=== PATIENT | female | born 1955 | race African-American/Black ===

== ENCOUNTER 2016-06-03 17:41 | Inpatient (IN) | payer BC, OTHER ==
[~2016-06-03] VITALS: Ht 166.4 cm; Wt 66.0 kg
[~2016-06-03 17:41] MED LIST: AMLO-218; ASPI-535; BENA20TA48; GLIM2TAB; HUMULIN SC; HYDR12.58 PO; METF500T4 PO; NITR0.4T6; OMEP20TA42; [UNRECOGNIZED DRUG - REMARK]
[2016-06-03] MEDS ORDERED: SOD CHLORIDE 0.9% 1,000 ML IV STA ×2 (18:00→19:12)
[2016-06-03] MEDS ORDERED: FAMOTIDINE 20 MG INJ IV STA (18:00)
[2016-06-03] MEDS ORDERED: ONDANSETRON 4 MG INJ IV STA (18:00)
[2016-06-03] MEDS ORDERED: ASPIRIN 325 MG TAB PO STA (18:12)
[2016-06-03 18:14] LABS: BASOPHILS % 0.4 % (0.0-2.0); EOSINOPHILS # 0.1 10^3/ul (0.0-0.5); EOSINOPHILS % 0.9 % (0.0-7.0); HEMATOCRIT 42.2 % (37.0-47.0); HEMOGLOBIN 13.9 g/dl (12.0-16.0); LYMPHOCYTES # 1.6 10^3/ul (0.8-2.9); LYMPHOCYTES % 25.6 % (15.0-51.0); MEAN CORPUSCULAR HEMOGLOBIN 27.1 pg (29.0-33.0); MEAN CORPUSCULAR VOLUME 82.1 fl (82.0-101.0); MEAN PLATELET VOLUME 7.5 fl (7.4-10.4); MONOCYTE # 0.3 10^3/ul (0.3-0.9); MONOCYTES % 4.5 % (0.0-11.0); NEUTROPHIL # 4.4 10^3/ul (1.6-7.5); NEUTROPHILS % 68.6 % (39.0-77.0); PLATELET COUNT 268 10^3/UL (140-440); RED BLOOD COUNT 5.14 10^6/ul (4.20-5.40); RED CELL DISTRIBUTION WIDTH 12.2 % (11.5-14.5); UNCORRECTED WBC 6.4 10^3/ul (4.8-10.8); WHITE BLOOD COUNT 6.4 10^3/ul (4.8-10.8)
[2016-06-03 18:15] LABS: CONDITION 1
--- NOTE | 2016-06-03 18:22 | RADRPT ---
PROCEDURE: XR Chest. CLINICAL INDICATION: Abdomen pain. TECHNIQUE: Single frontal view. COMPARISON: 04/15/2012. FINDINGS: The lungs are clear. The heart size is normal. There is no pleural effusion. There is no pneumothorax. IMPRESSION: 1. Normal chest radiograph. 2. No change from 04/15/2012. RPTAT: QQ .Sebastien Valle MD, MD Date Time Electronically viewed and signed by .Sebastien Valel MD, MD on 06/03/2016 18:22 .R/
[2016-06-03 18:23] LABS: ALBUMIN 4.5 g/dl (3.3-4.9); CHLORIDE 98 mmol/L (97-110); SODIUM 139 mmol/L (135-144)
[2016-06-03 18:24] LABS: INR 0.96; POTASSIUM 4.1 mmol/L (3.5-5.1); PROTIME 12.8 Sec (12.2-14.2)
[2016-06-03 18:25] LABS: PARTIAL THROMBOPLASTIN TIME 27.5 Sec (25.0-35.0)
[2016-06-03 18:26] LABS: ALBUMIN/GLOBULIN RATIO 1.32; ALKALINE PHOSPHATASE 119 IU/L (42-121); AMYLASE 75 U/L (11-123); ANION GAP 21 (8-16); ASPARTATE AMINO TRANSFERASE 17 IU/L (15-46); BILIRUBIN,INDIRECT 0.2 mg/dl (0-1.1); BILIRUBIN,TOTAL 0.2 mg/dl (0.2-1.3); BLOOD UREA NITROGEN 14 mg/dl (7-20); CARBON DIOXIDE 24 mmol/L (21-31); CREATININE 0.66 mg/dl (0.44-1.00); TOTAL PROTEIN 7.9 g/dl (6.1-8.1)
[2016-06-03 18:27] LABS: ALANINE AMINOTRANSFERASE 24 IU/L (13-69); CALCIUM 10.3 mg/dl (8.4-10.2); GLUCOSE 133 mg/dl (70-220)
--- NOTE | 2016-06-03 18:42 | RADRPT ---
PROCEDURE: CT Brain without contrast. CLINICAL INDICATION: Headache. TECHNIQUE: A CT of the brain was performed utilizing axial sections from the skull base through th e vertex without contrast. Multiplanar re-formations were generated. Images were reviewed on a high- resolution PACS workstation. CTDIvol: 45.01 mGy. DLP: 720.23 mGy-cm. COMPARISON: 04/15/2012 FINDINGS: There is mild generalized volume loss. No hydrocephalus is seen. A 1.5 x 1.6 x 2.2 cm partially ca lcified pleural-based lesion is seen in the superolateral right posterior fossa, extending across fausto th sides of the tentorium cerebelli. This is consistent with a meningioma. Mild mass effect is seen in the adjacent right cerebellar hemisphere. There is minimal mass effect on the adjacent right occ ipital lobe. No midline shift is seen in the basal cisterns are patent. No acute intracranial hemor rhage is identified. There is no extra-axial collection. No CT evidence of acute infarction is iden tified. There is a chronic lacunar infarction in the left basal ganglia region. There are mild ather osclerotic arterial calcifications. There is no significant mucosal disease in the paranasal sinuses. The visualized mastoid air cells a re clear. The ossesous structures are unremarkable. The extracranial soft tissues are unremarkable. IMPRESSION: 1. No acute intracranial pathology. 2. Mild generalized volume loss. 3. Chronic lacunar infarction in the left basal ganglia region. 4. 2.2 cm partially calcified meningioma in the superolateral right posterior fossa, extending acro ss both sides of the tentorium cerebelli. This causes mild mass effect on the adjacent right cerebel lar hemisphere. 5. Atherosclerotic arterial calcifications. RPTAT: HTAR .Jeremy Morris MD, Date Time Electronically viewed and signed by .Jeremy Morris MD, on 06/03/2016 18:42 .R/
[2016-06-03 18:44] LABS: TROPONIN-I < 0.012 ng/ml (0.00-0.12)
[2016-06-03] MEDS ORDERED: METF1000 PO (18:52)
[2016-06-03] MEDS ORDERED: CANA300T PO (18:52)
[2016-06-03] MEDS ORDERED: PRAV10TA43 PO (18:52)
[2016-06-03] MEDS ORDERED: AMLO-147 PO (18:53)
[2016-06-03] MEDS ORDERED: BENA10TA48 PO (18:53)
[2016-06-03] MEDS ORDERED: METOCLOPRAMIDE 10 MG INJ IV STA (19:12)
[2016-06-03 19:17] LABS: D-DIMER 370.93 ng/ml (<460)
--- NOTE | 2016-06-03 19:42 | ERA ---
ER Documentation Chief Complaint Date/Time DATE: 06/03/16 TIME: 19:24 Chief Complaint 2 DAYS OF VOMITING AND DIARRHEA. HEADACHE NO NEURO. GEN WEAKNESS RECENT URI HPI This is a 60-year-old -[place] female with a known history of non- insulin-dependent diabetes mellitus, hypertension and a meningioma. The patient presents to the emergency department indicating that 2 weeks prior to arrival she had a nonproductive cough generalized myalgias, sneezing and flulike symptoms. The patient went to [facility] to the ER this past Monday, 4 days prior to arrival and was given a Z-Troy. She stated no radiographic imaging or ancillary laboratory work was obtained. The patient indicates that over the past week she has been having intermittent loose watery stools. She denies any recent hospitalizations. She has had no recent travel. She denies any blood present within the stool. She denies any abdominal pain. 12 hours prior to arrival the patient awoke at 5 AM, and stated she had multiple episodes of nonbloody nonbilious emesis which have continued throughout the day. She indicates that she has been vomiting roughly every 2 hours. She also indicates that when the vomiting started she developed a mild chest discomfort with no chest pressure. She indicated that the chest discomfort was a dull achy sensation that would last for roughly 30 minutes and then would spontaneously resolved. She had no associated symptoms of nausea diaphoresis but did state she had mild shortness of breath at the onset of the chest pain at rest. She stated the chest pain did not radiate to the neck arm back or jaw. She takes 325 mg of aspirin on a daily basis. The patient also indicates she has a known history of a meningioma which was diagnosed in 2008. She has seen the neurosurgeon Dr. Montenegro in March 2016 she was instructed to go to [facility] to see another neurosurgeon to discuss possible surgical intervention. She indicated she however was unable to see this neurosurgeon as he had retired. She does indicate that she has been having intermittent headaches over the past several months but denies any changes in vision. She denies that this is the worst headache of her life and she also has no neck pain. She has had no fevers shaking or chills. She also indicates that she has frequent urinary tract infections and is complaining of mild frequency urgency and dysuria over the past 48 hours. She has had generalized weakness which prompted her to come to the emergency department to be further evaluated as she has been unable to tolerate oral intake over the past 12 hours due to the emesis. ROS All systems reviewed and are negative except as per history of present illness. Medications Home Meds Reported Medications Amlodipine Besylate* (Amlodipine Besylate*) 10 Mg Tablet, 10 MG PO DAILY, #30 TAB 06/03/16 Benazepril Hcl* (Benazepril Hcl*) 10 Mg Tablet, 10 MG PO DAILY, #30 TAB 06/03/16 Pravastatin Sodium* (Pravastatin Sodium*) 10 Mg Tablet, 10 MG PO HS, TAB 06/03/16 Canagliflozin (Invokana) 300 Mg Tablet, 300 MG PO DAILY, TAB 06/03/16 Metformin Hcl* (Metformin Hcl*) 1,000 Mg Tablet, 1000 MG PO BID, #30 TAB 06/03/16 Discontinued Reported Medications [? New B/P Med] No Conflict Check 04/15/12 Hydrochlorothiazide* (Hydrochlorothiazide*) 12.5 Mg Tablet, 1 TAB PO DAILY 04/15/12 Metformin* (Glucophage*) 500 Mg Tab, 1 TAB PO BID 04/15/12 [Humulin] No Conflict Check, 16 U SC DAILY 04/15/12 Nitroglycerin* (Nitroglycerin* SL) 0.4 Mg Tab.subl 04/12/09 Aspirin Ec (Aspir 81) 81 Mg Tablet. 04/12/09 Glimepiride* (Glimepiride*) 2 Mg Tablet 04/12/09 Benazepril Hcl* (Benazepril Hcl*) 20 Mg Tablet 04/12/09 Amlodipine Besylate* (Norvasc*) 10 Mg Tablet 04/12/09 Omeprazole (Omeprazole) 20 Mg Tablet. 04/12/09 Allergies Allergies: Coded Allergies: hydrocodone (Verified Allergy, Mild, 04/15/12) PMhx/Soc History of Surgery: Yes (HYST) Anesthesia Reaction: No Hx Neurological Disorder: No Hx Respiratory Disorders: No Hx Cardiac Disorders: Yes (HTN) Hx Psychiatric Problems: No Hx Miscellaneous Medical Probl: Yes (DM II, HIGH CHOL, BRAIN TUMOR) Hx Alcohol Use: Yes (SOCIALLY) Hx Substance Use: No Hx Tobacco Use: Yes (SOCIALLY) Smoking Status: Light tobacco smoker Physical Exam Vitals Vital Signs Date Time Temp Pulse Resp B/P Pulse Ox O2 Delivery O2 Flow Rate FiO2 06/03/16 17:51 97.9 71 22 173/97 100 Room Air 06/03/16 17:42 97.9 82 22 140/84 98 Physical Exam Constitutional:Well-developed. Well-nourished. HEENT:Normocephalic. Atraumatic.Pupils were equal round reactive to light. Dry mucous membranes.No tonsillar exudates. Funduscopy exam showed sharp optic disc bilaterally venous pulsations are present Neck: No nuchal rigidity. No lymphadenopathy. No posterior cervical spine tenderness or step-offs. Respiratory: Not using accessory muscles of respiration.Lungs were clear to auscultation bilaterally. No rhonchi. No rales. No wheezing. Cardiovascular: Regular rate regular rhythm.No murmurs. No rubs were appreciated.S1, S2 normal. Distal pulses are palpable 2+ bilaterally. GI: Abdomen was soft. Nontender. Non Distended. No pulsatile abdominal masses or bruits. No rebound. No guarding. Bowel sounds were present and normal. Muscle skeletal: Full range of motion of both the upper and lower extremities bilaterally.Normal muscle tone.No assymetrical calf tenderness or swelling. Skin: No petechia, no purpura. No lesions on the palms or the soles of the feet. No maculopapular rash. NEURO: Patient was alert, awake, orientated x3.No facial droop. Gait observed and normal with no ataxia.Speech had regular rate and rhythm. No focal neurological deficits. Result Diagram: 06/03/16180206/03/161802 Results 24 hrs Laboratory Tests Test 06/03/16 18:03 Activated Partial Thromboplast Time 27.5Sec Alanine Aminotransferase (ALT/SGPT) 24IU/L Albumin 4.5g/dl Albumin/Globulin Ratio 1.32 Alkaline Phosphatase 119IU/L Amylase Level 75U/L Anion Gap 21 Aspartate Amino Transf (AST/SGOT) 17IU/L B-Type Natriuretic Peptide 98PG/ML Basophils # 0.010^3/ul Basophils % 0.4% Blood Morphology Comment Blood Urea Nitrogen 14mg/dl Calcium Level 10.3mg/dl Carbon Dioxide Level 24mmol/L Chloride Level 98mmol/L Creatinine 0.66mg/dl D-Dimer 370.93ng/ml D-Dimer Comment Direct Bilirubin 0.00mg/dl Eosinophils # 0.110^3/ul Eosinophils % 0.9% Globulin 3.40g/dl Glucose Level 133mg/dl Hematocrit 42.2% Hemoglobin 13.9g/dl INR International Normalized Ratio 0.96 Indirect Bilirubin 0.2mg/dl Lipase 34U/L Lymphocytes # 1.610^3/ul Lymphocytes % 25.6% Mean Corpuscular Hemoglobin 27.1pg Mean Corpuscular Hemoglobin Concent 33.0g/dl Mean Corpuscular Volume 82.1fl Mean Platelet Volume 7.5fl Monocytes # 0.310^3/ul Monocytes % 4.5% Neutrophils # 4.410^3/ul Neutrophils % 68.6% Nucleated Red Blood Cells # 0.010^3/ul Nucleated Red Blood Cells % 0.0/100WBC Platelet Count 18810^3/UL Potassium Level 4.1mmol/L Prothrombin Time 12.8Sec Prothrombin Time Ratio 1.0 Red Blood Count 5.1410^6/ul Red Cell Distribution Width 12.2% Sodium Level 139mmol/L Total Bilirubin 0.2mg/dl Total Protein 7.9g/dl Troponin I < 0.012ng/ml White Blood Count 6.410^3/ul Current Medications Medications (Trade) Dose Ordered Sig/Sarah Route PRN Reason Start Time Stop Time Status Last Admin Dose Admin Sodium Chloride (NS) 1,000 ml @ 1,000 mls/hr Q1H STAT IV 06/03/16 18:00 06/03/16 18:59 DC 06/03/16 18:05 Ondansetron HCl (Zofran Inj) 4 mg ONCE STAT IV 06/03/16 18:00 06/03/16 18:02 DC 06/03/16 18:07 Famotidine (Pepcid Iv) 20 mg ONCE STAT IV 06/03/16 18:00 06/03/16 18:02 DC 06/03/16 18:07 Aspirin 325 mg 325 mg ONCE STAT PO 06/03/16 18:12 06/03/16 18:14 DC 06/03/16 18:25 Sodium Chloride (NS) 1,000 ml @ 1,000 mls/hr Q1H STAT IV 06/03/16 19:12 06/03/16 20:11 2/17/17 19:39 Metoclopramide HCl (Reglan) 10 mg ONCE STAT IV 06/03/16 19:12 06/03/16 19:21 DC 06/03/16 19:39 Ondansetron HCl (Zofran Inj) 4 mg ER BRIDGE PRN IV NAUSEA AND/OR VOMITING 06/03/16 20:00 06/04/16 19:59 Acetaminophen (Tylenol Tab) 650 mg ER BRIDGE PRN PO MILD PAIN/FEVER 06/03/16 20:00 06/04/16 19:59 Procedures/MDM The patient presented to the emergency department with chest pain. My clinical evaluation and workup was to distinguish minor causes of chest pain from acute life threatening conditions such as myocardial infarction, pulmonary embolism, aortic dissection, esophageal rupture, cardiac tamponade. The patient was placed on a secured entrance monitor and continuous pulse oximetry. IV access established by nursing staff. The patient was given 325 mg of aspirin p.o. per 12 Lead EKG tracing ordered and reviewed by myself showed: Normal sinus rhythm at 72 bpm and no arrhythmia. [place] interval widened at 210 ms with a first-degree AV QRS duration widened at 134 ms. Patient had a left bundle branch block pattern and utilizing a Scarbossa criteria there is no underlying ST segment elevation or depression No changes consistent with acute ischemia. The EKG was obtained at 1811. I was able to speak with Dr. lastat 1815 and given that the patient was not expressing active chest pain, appeared comfortable there is no indication to take the patient to the [facility] for PCI due to the fact that she had a new left bundle branch block is a reviewed previous records and it was not present on a previous EKG. However the patient will be admitted for serial 12-lead EKG tracings and cardiac set of enzymes. Her first cardiac enzyme was negative The patient did receive IV fluids and multiple doses of antiemetics which included Zofran and Pepcid Reglan but the patient stated she still was unable to tolerate oral intake. Therefore she will be admitted for IV fluid hydration. She had no abdominal tenderness and therefore did not feel is necessary to obtain any radiographic imaging of the abdomen. The patient did indicate that she had been having intermittent headaches with a known history of a meningioma that is 2.[address] scan of the head in 2011. Therefore I repeated the patient's CT scan of her head and indicated that meningioma was still the same size and there was mild mass-effect adjacent to the right cerebellar hemisphere. I spoke with the neurosurgeon Dr. Pedersen who was in agreement with the medical management that this can be followed up on an outpatient basis as the patient has seen previous neurosurgeons in the past and had no focal neurological deficits at this time. The patient was a low pretest probability according to the well's criteria for pulmonary embolism. She did state she had a sudden onset of shortness of breath at the onset of chest discomfort therefore obtained a d-dimer, given that this was within normal limits and not elevated I did not feel is necessary to obtain a CT scan of the chest is my clinical suspicion was low for pulmonary embolism The patient will be admitted in serious condition the hospitalist Dr. Rene to the telemetry service. Departure Diagnosis: Primary Impression: Chest pain Qualified Code: R07.9 - Chest pain, unspecified type Additional Impressions: Left bundle branch block (LBBB) on electrocardiogram Intractable vomiting with nausea Qualified Code: R11.2 - Intractable vomiting with nausea, unspecified vomiting type Acute diarrhea Condition: Serious TJ DELCID Jun 03, 2016 19:40
[2016-06-03] MEDS ORDERED: ONDANSETRON 4 MG INJ IV PRN (20:00)
[2016-06-03] MEDS ORDERED: ACETAMINOPHEN 325 MG TAB PO PRN (20:00)
[2016-06-03 20:13] LABS: ADD UMIC YES; URINE BILIRUBIN (Dip) NEGATIVE (NEGATIVE); URINE BLOOD (Dip) TRACE (NEGATIVE); URINE KETONES (Dip) 3+ (NEGATIVE); URINE LEUKOCYTE ESTERASE (Dip) 1+ (NEGATIVE); URINE NITRITE (Dip) NEGATIVE (NEGATIVE); URINE TOTAL PROTEIN (Dip) NEGATIVE (NEGATIVE); URINE UROBILINOGEN (Dip) 0.2 E.U./dL (0.1-1.0)
[2016-06-03 20:36] LABS: URINE COLOR YELLOW (YELLOW)
[2016-06-03 20:38] LABS: BACTERIA,URINE FEW; SQUAMOUS EPITHELIAL CELL,UR MODERATE; URINE RBCS 0-2 /HPF (0)
[2016-06-04] MEDS ORDERED: DEXTROSE 5%-0.45% NACL 1,000 ML IV SCH (07:06)
[2016-06-04] MEDS ORDERED: morphine 2 MG INJ IV PRN (07:30)
[2016-06-04] MEDS ORDERED: ACETAMINOPHEN 325 MG TAB PO PRN (07:30)
[2016-06-04] MEDS ORDERED: ONDANSETRON 4 MG INJ IV PRN (07:30)
[2016-06-04] MEDS ORDERED: ALBUTEROL/IPRATROPIUM (NEB) 3 ML AMP HHN PRN (07:30)
[2016-06-04] MEDS ORDERED: NACL 0.9% 3 ML SYG IV SCH (07:30)
[2016-06-04] MEDS ORDERED: LORAZEPAM 2 MG INJ IV PRN (07:30)
[2016-06-04] MEDS ORDERED: METOCLOPRAMIDE 10 MG INJ IV PRN (07:30)
[2016-06-04] MEDS ORDERED: NITROGLYCERIN (SL) 0.4 MG TAB SL PRN (07:30)
[2016-06-04] MEDS ORDERED: SOD CHLORIDE 0.9% 100 ML ONE (07:39)
[2016-06-04] MEDS ORDERED: IOHEXOL 300MG/ML 150 ML BTL ONE (07:39)
[2016-06-04] MEDS: metroNIDAZOLE 500 MG/NS (PMX) 100 ML IVPB SCH ×3 (08:24→18:31)
--- NOTE | 2016-06-04 08:34 | RADRPT ---
AMENDMENT: 06/04/2016 3:03:00 PM Kojo Ragsdale M.D. Reproductive: A postmenopausal uterus is noted in the lower pelvis. No abnormal adnexal mass is id entified. This represents a correction to the earlier report. PROCEDURE: CT scan of the abdomen and pelvis with and without IV contrast. CLINICAL INDICATION: Abdominal pain with vomiting and diarrhea. TECHNIQUE: Thin section axial, coronal and sagittal images were performed through the abdomen and pelvis without contrast and then following the injection of 80 cc of Isovue 300. Low-dose protocol i maging was utilized. One or more of the following dose reduction techniques were used: - Automated exposure control. - Adjustment of the mA and/or kV according to patient size. Use of iterative reconstruction technique. Radiation Dose: CTDI: 45.01 and DLP: 720.23 COMPARISON: No. FINDINGS: Lungs and pleural space: Lungs are mildly hyperinflated. There is peripheral atelectasis in the rig ht lower lobe. No acute infiltrate or pulmonary nodule is identified. There is a small right pleur al effusion. There is peripheral atelectasis in the left lower lobe. Heart: Normal. No pericardial effusion is present. The liver, common bile duct and gallbladder: Liver is normal in size. There is a 1.5 cm benign hepa tic cyst in the right lobe of the liver. The hepatic portal veins are patent. There is a 7 mm mervin gn cyst in the inferior dorsal medial right lobe of the liver. The gallbladder and gallbladder wall are normal. Pancreas: Normal. The extrahepatic common bile duct measures 6.6 mm and is normal. Gastrointestinal: There is a small hiatal hernia. Stomach is incompletely distended. The small bow el loops have a normal caliber. There is scattered fecal material and air in the colon. There is a radiopaque particulate density in the distal sigmoid colon. A diverticulum is present on the cecum . The vermiform appendix was not identified. Kidneys and bladder : The kidneys and urinary bladder are normal. There is a benign 1.1 cm cyst vickie sing from the superior pole of the left kidney. Adrenal glands: Normal. Spleen: Normal. Lymph nodes: There is a 2 mm calcified lymph node at the aorta and superior mesenteric artery. No a bnormally enlarged lymph nodes are identified. Reproductive system: The prostate gland is enlarged. The seminal vesicles are normal. Bony elements: There are degenerative changes in the articular facets at L3-4, L4-5 and L5-S1. Ther e is mild grade 1 anterolisthesis of L4 and L5 with a 0 point 5 cm broad pseudo disk bulge. There i s disk space narrowing with ventral and dorsal spondylosis at L5-S1. There is moderate bony narrowi ng of the a L5-S1 nerve root foramina. No acute bony fracture or bone metastasis is identified. Vasculature: There are vascular calcifications in the abdominal aorta, common iliac arteries and int ernal iliac arteries. IMPRESSION: 1. There is a small hiatal hernia. 2. No signs of appendicitis or diverticulitis. There is a diverticulum arising from the cecum. 3. Small right pleural effusion with peripheral atelectasis in the right and left lower lobes. 4. 1.1 cm benign cyst superior pole left kidney. 5. Enlarged prostate. 6. Atherosclerotic vascular disease. 7. 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 9. Benign hepatic cysts. RPTAT:AAJJ Physician Abigail Date Time Electronically viewed and signed by Alessio Ragsdale Physician on 06/04/2016 15:02 ZAIDA/
[2016-06-04] MEDS ORDERED: GLUCOSE GEL 15 GRAM TUBE BUCCAL PRN (09:00)
[2016-06-04] MEDS ORDERED: DEXTROSE 50% 50 ML SYRINGE IV PRN ×2 (09:00)
[2016-06-04] MEDS ORDERED: GLUCOSE GEL 15 GRAM TUBE PO PRN ×2 (09:00)
[2016-06-04] MEDS ORDERED: GLUCAGON 1 MG INJ IM PRN (09:00)
[2016-06-04] MEDS ORDERED: IBUPROFEN 600 MG TAB PO PRN (10:00)
[2016-06-04] MEDS ORDERED: hydrALAzine 20 MG INJ IV PRN (10:00)
[2016-06-04] MEDS: FAMOTIDINE 20 MG INJ IV SCH ×2 (10:16→20:20)
[2016-06-04] MEDS: CIPROFLOXACIN 400MG/D5W 200 ML IVPB SCH ×2 (10:16→20:20)
[2016-06-04] MEDS: AMLODIPINE 10 MG TAB PO SCH (10:17)
[2016-06-04] MEDS: ASPIRIN 81 MG TAB PO SCH (10:17)
[2016-06-04 10:44] LABS: BASOPHIL # 0.1 10^3/ul (0.0-0.1); BASOPHILS % 1.2 % (0.0-2.0); EOSINOPHILS % 0.9 % (0.0-7.0); HEMATOCRIT 37.9 % (37.0-47.0); HEMOGLOBIN 12.7 g/dl (12.0-16.0); LYMPHOCYTES # 1.8 10^3/ul (0.8-2.9); LYMPHOCYTES % 34.8 % (15.0-51.0); MEAN CORPUSCULAR HEMOGLOBIN 27.3 pg (29.0-33.0); MEAN CORPUSCULAR HGB CONC 33.5 g/dl (32.0-37.0); MEAN CORPUSCULAR VOLUME 81.5 fl (82.0-101.0); MEAN PLATELET VOLUME 7.8 fl (7.4-10.4); MONOCYTE # 0.3 10^3/ul (0.3-0.9); MONOCYTES % 4.9 % (0.0-11.0); NEUTROPHILS % 58.2 % (39.0-77.0); PLATELET COUNT 259 10^3/UL (140-440); RED BLOOD COUNT 4.65 10^6/ul (4.20-5.40); RED CELL DISTRIBUTION WIDTH 12.4 % (11.5-14.5); UNCORRECTED WBC 5.2 10^3/ul (4.8-10.8); WHITE BLOOD COUNT 5.2 10^3/ul (4.8-10.8)
[2016-06-04 10:45] LABS: CONDITION 1; LH ANALYZER COMMENTS 1
[2016-06-04 10:46] LABS: ALBUMIN 3.9 g/dl (3.3-4.9)
[2016-06-04 10:47] LABS: POTASSIUM 4.3 mmol/L (3.5-5.1)
--- NOTE | 2016-06-04 10:48 | HP ---
DATE OF ADMISSION: 06/03/2016 CHIEF COMPLAINT: Vomiting, diarrhea, headache and chest pain. HISTORY OF PRESENT ILLNESS: The patient is a 60-year-old female with history of hypertension, diabe zain, dyslipidemia and meningioma, who presents to the emergency department with the above stated chi ef complaint. She stated that about 2 weeks ago she started having "flu." She said she was having fever/chills, headache, dry cough, muscle and joint pain, ____ bilious vomiting and nonbloody, nonbi lious diarrhea. She states she went to [facility] and was given a Z-Troy, and after that she stated her diarrhea worsened. No imaging or blood work was done over at [facility]. The patient actually denied abdominal pain. She also stated that for a long time, like off and on, she had to deal with diarrhea, but not this severe of for a long duration. As far as her chest pain is concerned, it started yesterday morning and located in the mid chest and is described as sharp/s queezing. No diaphoresis. No shortness of breath. No radiation to her arm, even though she states unrelated to her chest pain, she feels like sometimes her right hand has tingling sensation and some weakness. When she presented to the ER, a chest x-ray was done which showed no active disease. CT of the bev n shows a chronic lacunar infarct and a 2.2 cm partially calcified meningioma with mild ____. The p mehnaz does follow up regularly with a neurologist or neurosurgeon and the last time she was evaluat ed was 2 months ago. She stated she had an MRI of the brain in October of last year and at that time s he was told that the meningioma was growing there was a discussion about surgery. The ER physician, Dr. Rios, discussed the findings of the head CT with the on-call neurosurgeon, Dr. Pedersen, who s tated this can be followed up as an outpatient with her own doctors. Of note on further questioning, the patient stated that while she was doing laundry yesterday she fe lt lightheaded and fell to the ground, losing consciousness for less than a minute. She did not thi nk she hit her head, but she did land on her left knee and ____. REVIEW OF SYSTEMS: A 12-point review is performed, negative except as mentioned in the HPI. PAST MEDICAL HISTORY: As per HPI. SOCIAL HISTORY: She smokes 1 pack per week for about 35 years. She used to drink on a weekly basis . She also has a history of marijuana and cocaine for over 20 years, but last use was 10 years ago. PHYSICAL EXAMINATION: GENERAL: The patient is lying in the gurney, in no acute distress. She is answering questions appr opriately. Alert and oriented x4. HEENT: No obvious head deformity. Pupils are reactive to light. Extraocular muscles intact. CARDIOVASCULAR: Regular rate and rhythm. No extra sounds. LUNGS: Clear. ABDOMEN: Soft, nontender, nondistended. Positive bowel sounds. EXTREMITIES: No edema. There is tenderness in the left knee with no obvious deformity, swelling, e rythema or warmth. LABORATORY DATA: Basic labs within acceptable range. IMAGING: Chest x-ray shows no active disease. Brain CT shows acute a 2.2 cm partially calcified meningioma with mild ____. Also, chronic lacunar infarct. IMPRESSION: 1. Vomiting and diarrhea, possible enteritis versus colitis. 2. Chest pain, need to rule acute coronary syndrome. 3. Meningioma with mild ____. 4. Headache, ____. 5. History of hypertension. 6. History of diabetes. 7. History of dyslipidemia. 8. Urinary tract infection. PLAN: She will be placed on an antibiotic, which will address both the UTI and possible colitis/ent eritis. We will provide pain medication as needed. She will be ruled out for ACS, but I have low s uspicion for that. She will be continued with her home medications and will adjust them as needed, but for diabetes she will be placed on insulin. We will check an A1c, fasting lipids and TSH in the morning. As far as her meningioma is concerned, she will be followed up with her neurologist/neuro surgeon as an outpatient and as mentioned in the HPI, the on-call neurosurgeon, Dr. Pedersen, does not think this requires a consult during this hospitalization. Further workup and management will be per clinical course. Dictated By: SNEHA BEAR/MARTY Conf#: [id number] DID#: [id number]
[2016-06-04 10:49] LABS: CREATININE 0.69 mg/dl (0.44-1.00)
[2016-06-04 10:50] LABS: ALBUMIN/GLOBULIN RATIO 1.3; BILIRUBIN,INDIRECT 0.1 mg/dl (0-1.1); BILIRUBIN,TOTAL 0.1 mg/dl (0.2-1.3); TOTAL PROTEIN 6.9 g/dl (6.1-8.1)
[2016-06-04 10:51] LABS: CALCIUM 9.5 mg/dl (8.4-10.2); CHOL/HDL RATIO 4.4 RATIO
[2016-06-04] MEDS: INSULIN ASPART [NOVOLOG] 3 ML PEN SC SCH ×3 (12:01→21:00)
[2016-06-04 12:10] LABS: THYROID STIMULATING HORMONE 0.467 MIU/L (0.465-4.680)
[2016-06-04 14:07] VITALS: TEMP 98.9
[2016-06-04 15:00] VITALS: BP 163/80; PULSE 65; RESP 20; Ht 166.4 cm; Wt 66.0 kg
[2016-06-04 16:52] VITALS: PULSE 67
--- NOTE | 2016-06-04 17:04 | PN ---
Date/Time of Note Date/Time of Note DATE: 06/04/16 TIME: 16:59 Assessment/Plan VTE Prophylaxis VTE Prophylaxis Intervention: SCD's Lines/Catheters Urinary Cath still in place: No Assessment/Plan Chief Complaint/Hosp Course 1. Intractable N/V 2/2 Azithro vs UTI vs Chronic Meningioma -cont Cipro and IVF -pt to F/U with her [facility] as an out-pt 2. Chest pain R/O ACS 3. Meningioma with FERNÁNDEZ -out-pt F/U 4. History of hypertension-stable 5. DM -A1C at 9.4 6. UTI -cont Cipro PPx- SCD's Problems: Subjective 24 Hr Interval Summary Gastrointestinal: nausea Exam/Review of Systems Vital Signs Vitals Vital Signs Date Time Temp Pulse Resp B/P Pulse Ox O2 Delivery O2 Flow Rate FiO2 06/04/16 16:52 67 06/04/16 15:00 98.0 20 163/80 98 Room Air Exam Constitutional: alert, oriented Respiratory: clear to auscultation Cardiovascular: regular rate and rhythm Gastrointestinal: soft, No distended Musculoskeletal: nl extremities to inspection Results Result Diagram: 06/04/16 1000 06/04/16 1020 Results 24 hrs Laboratory Tests Test 06/03/16 18:03 06/03/16 19:20 06/04/16 10:00 06/04/16 10:20 Activated Partial Thromboplast Time 27.5 Alanine Aminotransferase (ALT/SGPT) 24 17 Albumin 4.5 3.9 Albumin/Globulin Ratio 1.32 1.30 Alkaline Phosphatase 119 91 Amylase Level 75 Anion Gap 21 H 18 H Aspartate Amino Transf (AST/SGOT) 17 16 B-Type Natriuretic Peptide 98 Basophils # 0.0 0.1 Basophils % 0.4 1.2 Blood Morphology Comment Blood Urea Nitrogen 14 13 Calcium Level 10.3 H 9.5 Carbon Dioxide Level 24 23 Chloride Level 98 103 Creatinine 0.66 0.69 D-Dimer 370.93 D-Dimer Comment Direct Bilirubin 0.00 0.00 Eosinophils # 0.1 0.0 Eosinophils % 0.9 0.9 Globulin 3.40 H 3.00 Glucose Level 133 150 Hematocrit 42.2 37.9 Hemoglobin 13.9 12.7 INR International Normalized Ratio 0.96 Indirect Bilirubin 0.2 0.1 Lipase 34 Lymphocytes # 1.6 1.8 Lymphocytes % 25.6 34.8 Mean Corpuscular Hemoglobin 27.1 L 27.3 L Mean Corpuscular Hemoglobin Concent 33.0 33.5 Mean Corpuscular Volume 82.1 81.5 L Mean Platelet Volume 7.5 7.8 Monocytes # 0.3 0.3 Monocytes % 4.5 4.9 Neutrophils # 4.4 3.0 Neutrophils % 68.6 58.2 Nucleated Red Blood Cells # 0.0 0.0 Nucleated Red Blood Cells % 0.0 0.0 Platelet Count 268 259 Potassium Level 4.1 4.3 Prothrombin Time 12.8 Prothrombin Time Ratio 1.0 Red Blood Count 5.14 4.65 Red Cell Distribution Width 12.2 12.4 Sodium Level 139 140 Total Bilirubin 0.2 0.1 L Total Protein 7.9 6.9 # Troponin I < 0.012 White Blood Count 6.4 5.2 Urine Bacteria FEW Urine Bilirubin NEGATIVE Urine Clarity SLIGHTLY CLOUDY Urine Color YELLOW Urine Glucose 0.5% H Urine Hemoglobin TRACE Urine Ketones 3+ H Urine Leukocyte Esterase 1+ H Urine Microscopic RBC 0-2 Urine Microscopic WBC 10-25 Urine Nitrite NEGATIVE Urine Specific [place] 1.020 Urine Squamous Epithelial Cells MODERATE Urine Total Protein NEGATIVE Urine Urobilinogen 0.2 E.U./dL Urine Yeast OCCASIONAL Urine pH 5.5 Cholesterol Level 206 H Cholesterol/HDL Ratio 4.4 HDL Cholesterol 46 Hemoglobin A1c 9.4 H LDL Cholesterol, Calculated 140 Thyroid Stimulating Hormone (TSH) 0.467 Triglycerides Level 99 Test 06/04/16 10:27 Bedside Glucose 143 Medications Medications Current Medications Dextrose/Sodium Chloride (D5-1/2ns) 1,000 ml @ 100 mls/hr Q10H IV Last administered on 06/04/16 08:23; Admin Dose 100 MLS/HR; Start 06/04/16 at 07:06 Lorazepam (Ativan) 0.5 mg Q6H PRN IV ANXIETY; Start 06/04/16 at 07:30 Ondansetron HCl (Zofran Inj) 4 mg Q6H PRN IV NAUSEA AND/OR VOMITING; Start at 07:30 Metoclopramide HCl (Reglan) 10 mg Q6H PRN IV NAUSEA AND/OR VOMITING; Start at 07:30 Aspirin (Aspirin) 81 mg DAILY PO Last administered on 06/04/16t 10:17; Admin Dose 81 MG; Start 06/04/16 at 09:00 Nitroglycerin (Nitroglycerin (Sl Tab) 0.4 Mg) 1 tab Q5M PRN SL CHEST PAIN; Start 06/04/16 at 07:30 Acetaminophen (Tylenol Tab) 650 mg Q6H PRN PO PAIN LEVEL 1-3 OR FEVER Last administered on 06/04/16 14:03; Admin Dose 650 MG; Start 06/04/16 at 07:30 Morphine Sulfate (morphine) 2 mg Q4H PRN IV PAIN LEVEL 7-10; Start 06/04/16 at 07:30 Famotidine 20 mg 20 mg Q12 IV Last administered on 06/04/16 10:16; Admin Dose 20 MG; Start 06/04/16 at 09:00 Ciprofloxacin/ Dextrose 200 ml @ 200 mls/hr Q12 IVPB Last administered on 06/04 10:16; Admin Dose 200 MLS/HR; Start 06/04/16 at 09:00 Metronidazole (Flagyl 500 Mg (Pmx)) 100 ml @ 100 mls/hr Q6 IVPB Last administered on 06/04/16 12:04; Admin Dose 100 MLS/HR; Start 06/04/16 at 07:30 Insulin Glargine (Lantus) 10 unit DAILY@20 SC ; Start 06/04/16 at 20:00 Atorvastatin Calcium (Lipitor) 10 mg DAILY@21 PO ; Start 06/04/16 at 21:00 Miscellaneous Information 1 ea NOTE XX ; Start 06/04/16 at 09:00 Glucose (Glutose) 15 gm Q15M PRN PO DECREASED GLUCOSE; Start 06/04/16 at 09:00 Glucose (Glutose) 22.5 gm Q15M PRN PO DECREASED GLUCOSE; Start 06/04/16 at 09: 00 Dextrose (D50w Syringe) 25 ml Q15M PRN IV DECREASED GLUCOSE; Start 06/04/16 at 09:00 Dextrose (D50w Syringe) 50 ml Q15M PRN IV DECREASED GLUCOSE; Start 06/04/16 at 09:00 Glucagon (Glucagen) 1 mg Q15M PRN IM DECREASED GLUCOSE; Start 06/04/16 at 09:00 Glucose (Glutose) 15 gm Q15M PRN BUCCAL DECREASED GLUCOSE; Start 06/04/16 at 09 :00 Ibuprofen (Motrin) 600 mg Q6H PRN PO PAIN OR FEVER Last administered on 10:17; Admin Dose 600 MG; Start 06/04/16 at 10:00 Hydralazine HCl (Apresoline) 10 mg Q6H PRN IV SBP >160; Start 06/04/16 at 10:00 Amlodipine Besylate (Norvasc) 10 mg DAILY PO Last administered on 06/04/16 10: 17; Admin Dose 10 MG; Start 06/04/16 at 10:00 JOSE TALBOT Jun 04, 2016 17:04
--- NOTE | 2016-06-04 18:17 | RADRPT ---
Echocardiogram Report Patient Name: KITTY HARRIS Gender: Female Date: 1955 Study Date: 04-Jun-2016 Residential Child Care Counselor: JENIFFER Location: [facility] Height(Cm): 168 Weight(Kg): 67 BSA: 1.76 Ref. Physician: SNEHA PALACIOS Quality: Adequate Procedures: Transthoracic echocardiogram with complete 2D, M-Mode, and Doppler examination. Indications: Chest Pain. 2D/M Mode Doppler Measurement Value Normal Ranges Measurement Value Normal Ranges AoR Diam MM 3.4 cm LVOT Peak Mark 1.2 m/sec ACS MM 2.3 cm LVOT Peak PG 5.4 mmHg LVIDd 2D 3.9 3.5 - 5.6 cm MV E Peak Mark 0.6 m/sec LVIDs 2D 2.1 2.1 - 4.1 cm MV A Peak Mark 0.9 m/sec LVPWd 2D 1.4 0.6 - 1.1 cm MV E/A 0.6 IVSd 2D 1.6 0.6 - 1.1 cm MV Decel Time 348 msec EDV 2D 66.0 cm3 MV Decel Sawyer 2 ESV 2D 9.9 cm3 MV E/A 0.6 LA Dimen 2D 3.7 2.3 - 4.0 cm TR Peak Mark 2.1 m/sec TR Peak PG 17.3 mmHg RVSP 20.3 mmHg Findings Left Ventricle: Normal left ventricular systolic function. Normal left ventricular cavity size. Moderate concentric left ventricular hypertrophy. Ejection fraction is visually estimated at 6570 %. Right Ventricle: Normal right ventricular size. Normal right ventricular systolic function. Left Atrium: There is mild enlargement of left atrium appreciated best by LA volumes. Right Atrium: The right atrium is normal in size. Atrial Septum: Normal atrial septum. Mitral Valve: Mild mitral annular calcification. Trace mitral regurgitation. Aortic Valve: No significant aortic stenosis or insufficiency. Normal trileaflet aortic valve structure. Tricuspid Valve: Normal appearance of the tricuspid valve. Estimated peak PA systolic pressure 20 mmHg. There is trace tricuspid regurgitation. Pulmonic Valve: Pulmonic valve not well visualized. No obvious evidence of pulmonic regurgitation. Pericardium: Normal pericardium with no significant pericardial effusion. Aorta: Normal aortic root. IVC: Normal size and normal respiratory collapse consistent with normal right atrial pressure. Pulmonary Artery: Not well visualized. Conclusions 1.The left ventricle is normal in size and systolic function. 2.Estimated left ventricular ejection fraction of 65-70%. 3.Moderate concentric left ventricular hypertrophy. Electronically Signed By: Logan Omalley 04-Jun-2016 18:16:45 -0800 Patient Name: KITTY HARRIS Study Date: 04-Jun-[id number]
[2016-06-04 18:52] VITALS: BP 150/80; RESP 16
[2016-06-04] MEDS ORDERED: INSULIN GLARGINE [LANtus] 3 ML PEN SC SCH (20:00)
[2016-06-04] MEDS: ATORVASTATIN 10 MG TAB PO SCH ×2 (20:20→20:29)
[2016-06-04 20:25] VITALS: PULSE 62
[2016-06-04 23:21] VITALS: BP 155/83; RESP 16
[2016-06-05] VITALS (7 sets, daily range): BP systolic 122–135; BP diastolic 78–79; PULSE 54–63; RESP 16–20
[2016-06-05] MEDS: DIPHENHYDRAMINE 50 MG INJ IV PRN ×2 (00:04→08:31)
[2016-06-05] MEDS: metroNIDAZOLE 500 MG/NS (PMX) 100 ML IVPB SCH ×3 (00:15→12:34)
[2016-06-05 06:58] LABS: BASOPHILS % 0.9 % (0.0-2.0); EOSINOPHILS # 0.1 10^3/ul (0.0-0.5); EOSINOPHILS % 2.3 % (0.0-7.0); HEMATOCRIT 37.3 % (37.0-47.0); HEMOGLOBIN 12.7 g/dl (12.0-16.0); LYMPHOCYTES # 2.3 10^3/ul (0.8-2.9); LYMPHOCYTES % 46.8 % (15.0-51.0); MEAN CORPUSCULAR HEMOGLOBIN 27.6 pg (29.0-33.0); MEAN CORPUSCULAR VOLUME 81.3 fl (82.0-101.0); MEAN PLATELET VOLUME 7.4 fl (7.4-10.4); MONOCYTE # 0.4 10^3/ul (0.3-0.9); MONOCYTES % 8.7 % (0.0-11.0); NEUTROPHILS % 41.3 % (39.0-77.0); PLATELET COUNT 274 10^3/UL (140-440); RED BLOOD COUNT 4.59 10^6/ul (4.20-5.40); RED CELL DISTRIBUTION WIDTH 12.2 % (11.5-14.5); UNCORRECTED WBC 4.9 10^3/ul (4.8-10.8); WHITE BLOOD COUNT 4.9 10^3/ul (4.8-10.8)
[2016-06-05 07:08] LABS: POTASSIUM 3.8 mmol/L (3.5-5.1)
[2016-06-05 07:11] LABS: CREATININE 0.82 mg/dl (0.44-1.00); PHOSPHORUS 3.1 mg/dl (2.5-4.9)
[2016-06-05 07:12] LABS: CALCIUM 9.6 mg/dl (8.4-10.2)
[2016-06-05 07:19] LABS: CONDITION 1; LH ANALYZER COMMENTS 1
[2016-06-05] MEDS: INSULIN ASPART [NOVOLOG] 3 ML PEN SC SCH ×2 (07:46→12:31)
[2016-06-05] MEDS: CIPROFLOXACIN 400MG/D5W 200 ML IVPB SCH (08:30)
[2016-06-05] MEDS: ASPIRIN 81 MG TAB PO SCH (08:30)
[2016-06-05] MEDS: AMLODIPINE 10 MG TAB PO SCH (08:31)
[2016-06-05] MEDS: FAMOTIDINE 20 MG INJ IV SCH (08:34)
[2016-06-05] MEDS ORDERED: CEPH-443 PO (10:04)
--- NOTE | 2016-06-05 10:06 | PDOCDIS ---
Discharge Instructions CONDITION Patient Condition: Good HOME CARE INSTRUCTIONS: Special Diet: DIABETIC ACTIVITY: Activity Restrictions: No Restrictions FOLLOW UP/APPOINTMENTS Appointments F/U WITH YOUR PCP IN 1-2 WEEKS AND WITH YOUR NEUROSURGEON JOSE TALBOT Jun 05, 2016 10:05
--- NOTE | 2016-06-05 19:32 | DS ---
DATE OF ADMISSION: 06/03/2016 DATE OF DISCHARGE: 06/05/2016 DISCHARGE DIAGNOSES: 1. Intractable nausea and vomiting, now improved, likely secondary to chronic meningioma applying p ressure on the cerebellum. This may have been exacerbated by azithromycin. Nausea is currently imp roved. 2. Chronic meningioma with headache and nausea. The patient is to follow up with her neurosurgeon as an outpatient. The patient will likely need neurosurgery in the near future. 3. Gastroesophageal reflux disease like symptoms. The patient did have chest discomfort, but it wa s a burning sensation. Troponin was negative. The patient had no signs of cardiac symptoms. EKG s howed no signs of acute ischemia. Echo showed a normal ejection fraction. 4. Hypertension, stable. 5. Diabetes. A1c is 9.4. Lifestyle changes were advised. HOSPITAL COURSE: The patient is a 60-year-old female with a history of hypertension, diabetes, dysl ipidemia, and meningioma. The patient does have a neurosurgeon that she follows up with as an outpa tient. The patient had presented with vomiting, diarrhea, headache, and chest pain. Chest pain was atypical and described as a burning sensation. Chest x-ray on arrival showed a normal chest. Brai n CT showed the meningioma causing mild mass effect on the adjacent right cerebellar hemisphere. Ne urosurgery coupon and bond collection clerk was notified and said there is no need for acute intervention. Abdominal pelvis CT was also done. There were some benign cysts, otherwise no acute findings. It was felt that jeffrey ent's nausea may be from a combination of meningioma as well as recent Z-Troy that she was taking for flu like symptoms. The patient was noted to have a UTI as well. The patient was given IV fluids a s well as Cipro. Her symptoms of nausea and vomiting did improve significantly. Her chest pain res olved. She does have a 2D echo that showed EF of 65%. There is moderate LVH. The patient was feel ing better on the day of discharge. She knows she needs to follow up with a neurosurgeon for evalua tion of surgery to remove the meningioma. On the day of discharge, the patient's vitals, labs, live r, stable. She had no acute complaints and questions were answered. CONDITION ON DISCHARGE: Stable. DISPOSITION: To home. MEDICATIONS: 1. The patient is to continue her usual home medications. 2. She was also given a prescription for Keflex 500 mg p.o. q.12 hours for 7 days. FOLLOWUP: The patient is to follow up with her PCP in 1 to 2 weeks and with her neurosurgeon. Greater than 30 minutes was spent coordinating discharge of this patient. Dictated By: JOSE TALBOT MD BS/NTS Conf#: [id number] DID#: [id number] CC: SNEHA PALACIOS MD;*EndCC*
== END 2016-06-05 15:05 | disposition home or self-care (01) | DRG 392 ==
LOC: E/R 17:41 → TEL 19:53
PROVIDERS: ADMIT Internal Medicine; ATTEND Internal Medicine
DX: R11.2 Nausea with vomiting, unspecified (principal); N39.0 Urinary tract infection, site not specified; I10 Essential (primary) hypertension; D32.0 Benign neoplasm of cerebral meninges; R51 Headache; E11.9 Type 2 diabetes mellitus without complications; R19.7 Diarrhea, unspecified; R07.89 Other chest pain; Z72.0 Tobacco use; Z86.73 Personal history of transient ischemic attack (TIA), and cerebral infarction without residual deficits; K52.9 Noninfective gastroenteritis and colitis, unspecified
CPT/HCPCS: 70450; 71010; 74177; 80048; 80053; 80061; 81001; 81003; 82150; 82962; 83036; 83690; 83735; 83880; 84100; 84443; 84484; 85025; 85378; 85610; 85730; 87086; 93005; 93306; 96372; 96374; 96375; 96376; J0360; J0744; J1200; J1815; J2270; J2405; J2765; J7030; J7042; Q9967